=== PATIENT | male | born 1945 | race African-American/Black ===

== ENCOUNTER 2020-07-19 11:05 | Emergency (ER) | payer MEDICARE, OTHER ==
[~2020-07-19] VITALS: Ht 162.6 cm; Wt 63.0 kg
[2020-07-19 11:28] VITALS: BP 118/80
--- NOTE | 2020-07-19 12:24 | PHYS DOC ---
Past History Past Medical History: HIV Past Surgical History: No Surgical History Alcohol Use: Occasionally Adult General Chief Complaint Chief Complaint: LACERATION/AVULSION HPI HPI Patient is a male with history of HIV presented today with right wrist laceration, patient states he was opening a bag with a blade that cut him. Patient states he is left-handed. Review of Systems Review of Systems Constitutional: Denies fever or chills [] Musculoskeletal: Denies back pain or joint pain [] Integument: Right wrist laceration Neurologic: Denies headache, focal weakness or sensory changes [] All other systems were reviewed and found to be within normal limits, except as documented in this note. Allergies Allergies Allergies Coded Allergies Type Severity Reaction Last Updated Verified No Known Drug Allergies 07/19/20 No Physical Exam Physical Exam Constitutional: Well developed, well nourished, no acute distress, non-toxic appearance. [] Skin: Warm, dry, right lateral wrist with a laceration approximately 3 cm long, there is no obvious tendon involvement. Patient able to flex and extend all the fingers on the right. Adequate radial, medial, ulnar sensation to the right.. +2 right radial pulse. Cap refill less than 2 seconds of right fingers Back: No tenderness, no CVA tenderness. [] Extremities: No tenderness, no cyanosis, no clubbing, ROM intact, no edema. [] Neurologic: Alert and oriented X 3, normal motor function, normal sensory function, no focal deficits noted. [] Psychologic: Affect normal, judgement normal, mood normal. [] Current Patient Data Vital Signs Vital Signs Date Time Temp Pulse Resp B/P (MAP) Pulse Ox O2 Delivery O2 Flow Rate FiO2 07/19/20 11:28 97.6 59 16 118/80 (93) 96 Room Air EKG EKG [] Radiology/Procedures Radiology/Procedures Laceration/Wound Repair Wound Location: Right wrist Wound's Depth, Shape: Vertical Wound Length (cm): Approximately 3 cm Wound Explored: clean Irrigated w/ Saline (ccs): 30 Betadine Prep?: Yes Anesthesia: 1% of lidocaine with epinephrine Volume Anesthetic (ccs): 4 Wound Repaired With: Prolene Suture Size/Type: 4.0/interrupted sutures Number of Sutures: 7 Progress : Wound was covered with nonstick dressing Heart Score Risk Factors: Risk Factors: DM, Current or recent (<one month) smoker, HTN, HLP, family history of CAD, obesity. Risk Scores: Risk Factors: DM, Current or recent (<one month) smoker, HTN, HLP, family history of CAD, obesity. Course & Med Decision Making Course & Med Decision Making Pertinent Labs and Imaging studies reviewed. (See chart for details) This is a 74-year-old male patient with right wrist laceration that was closed by me as noted in procedures. Wound care instructions and return precautions provided. Tetanus updated. Dragon Disclaimer Dragon Disclaimer This electronic medical record was generated, in whole or in part, using a voice recognition dictation system. Departure Departure: Impression: Primary Impression: Laceration of wrist, right Disposition: 01 DC HOME SELF CARE/HOMELESS Condition: STABLE Referrals: SHAMA ROBERSON MD (PCP) follow up with your doctor or the ER in 7 days to have stitches removed. Patient Instructions: Laceration Care, Adult Additional Instructions: You have right wrist laceration that was closed with 7 stitches. You can shower and wash your hand and wrist. Do not soak the areas. Apply Neosporin to the laceration site twice a day. Monitor the area for any signs of infection including but not limited to increased redness, warmth, yellow drainage or any other concerning symptoms or return to the ED. Follow-up with your doctor or the emergency room in 7 days for stitches to be removed Problem Qualifiers Primary Impression: Laceration of wrist, right Encounter type: initial encounter Qualified Codes: S61.511A - Laceration without foreign body of right wrist, initial encounter ELENI DELGADO APRN Jul 19, 2020 12:24
[2020-07-19] MEDS ORDERED: DIPH,PERTUSS(ACELL),TET VAC/PF 0.5 ML SYRINGE. VAX IM ONE (12:30)
[2020-07-19] MEDS ORDERED: LIDOCAINE 1%/EPI 1:100,000 10 ML VIAL. INJ ONE (12:30)
== END 2020-07-19 13:18 | disposition home or self-care (01) ==
LOC: ER 11:05
DX: S61.511A Laceration without foreign body of right wrist, initial encounter (principal); W27.8XXA Contact with other nonpowered hand tool, initial encounter; Y93.89 Activity, other specified; Y92.89 Other specified places as the place of occurrence of the external cause; Y99.8 Other external cause status
CPT/HCPCS: 12002; 90471; 90715; 99283-25